=== PATIENT | male | born 1990 | race African-American/Black ===

== ENCOUNTER 2017-08-21 23:34 | Emergency (ER) | payer SELFPAY ==
[~2017-08-21] VITALS: Ht 182.9 cm; Wt 79.4 kg
--- NOTE | 2017-08-21 23:53 | NUR ---
Pt states he's having an asthma attack, out of his inhailer. C/o SOB and associated CP, LS clear but diminished in bases. Pt denies CP, dizziness, n/v, no other complaints, no distress noted.
[2017-08-22] MEDS ORDERED: ALBUTEROL FS 2.5 MG/0.5 ML VIAL.NEB NEB ONE
[2017-08-22] MEDS ORDERED: ALBUTEROL FS 2.5 MG/0.5 ML VIAL.NEB ONE (00:01)
--- NOTE | 2017-08-22 00:16 | NUR ---
RT at bed side for breathing treatment
--- NOTE | 2017-08-22 00:46 | NUR ---
patient states he fels better after his breathing treatment. MD notified
[2017-08-22 00:54] VITALS: BP 130/76
--- NOTE | 2017-08-22 00:55 | NUR ---
Patient discharged to home in stable condition. Written and verbal after care instructions given. Patient verbalizes understanding of instruction. pt ambulatory with a steady gait VITAL SIGNS WITHIN NORMAL LIMITS.
== END 2017-08-22 00:56 | disposition home or self-care (01) ==
LOC: ER 23:36
DX: J45.909 Unspecified asthma, uncomplicated (principal); Z88.8 Allergy status to other drugs, medicaments and biological substances
CPT/HCPCS: 71010; 94640; 99283; A4606